=== PATIENT | female | born 1995 | race Caucasian/White ===

== ENCOUNTER 2025-09-08 07:11 | Emergency (ER) | payer BC, SELFPAY ==
[2025-09-08 07:16] VITALS: BP 128/87
--- NOTE | 2025-09-08 07:54 | ED.GENMED ---
History of Present Illness
General
Chief Complaint: Post Operative Problem(s)
Source: patient
Exam Limitations: none
Time Seen by Provider: 09/08/25 07:46
Nursing documentation reviewed up to this point in time: agreed with
History of Present Illness
History of Present Illness:
29 yr old female presents to the ER for evaluation. Patient has a history of adenomyosis and heavy vaginal bleeding which was treated with hysterectomy. Patient had a total robotic hysterectomy however has ovaries in place on 07/19 at [facility]
[place] by Dr. Greene. She presents to the ER however because of low back pain which started on Friday 2 days ago. She denies any injury but does report she has a 30 pound toddler at home and pain is worse with lifting him. It is also worse
with bending twisting. She denies any fever or chills. She does report that in the past she presented with back pain and had a UTI. She denies any actual UTI symptoms including dysuria frequency. She also has a history of right renal stone.
Phy Exam
General Physical Exam
General Presentation: no apparent distress
General age: appears stated age
General Skin: warm and dry
General Habitus: normal
General Mental: alert
General Hydration: appears well hydrated
Gastrointestinal Exam
Gastrointestinal Exam: soft and other (minimally tender left abd region )
Neurological Exam
Neurological Exam: alert and oriented x3
Musculoskeletal Exam
Musculoskeletal Exam: full ROM
Skin Exam
Skin Exam: normal color and warm/dry
Psychiatric Exam
Psychiatric Exam: normal mood/affect
Course
Orders/Labs/Results
Orders:
Orders
09/08/25 08:03
CT Abd/Pel (IV only)-DH only Urgent
Comment:
Reason For Exam: left sided abd pain/back pain
IV Insert/Care/Rem.- Treatment PRN
0.9% Sodium Chloride 1000 ml [Nss] 1,000 ml IV BOLUS
Ketorolac [Toradol] 15 mg IV NOW STA
09/08/25 08:05
diazePAM [Valium Injection] 2 mg IV NOW STA
09/08/25 08:23
Complete Blood Count/With Diff Urgent
Comprehensive Metabolic Panel Urgent
Urinalysis Reflex To Culture Urgent
Date Specimen was Collected: 09/08/25
Time Specimen was Collected: 08:21
09/08/25 09:49
US Pelvis Only (non-obstetric) Urgent
Comment:
Reason For Exam: left ovarian cyst + back pain
09/08/25 09:53
Morphine Sulfate 4 mg IV NOW STA
Abnormal Lab Results
09/08/25
08:23
Abs Immat Gran (auto) 0.1 H 10^3/uL
(0-0.05)
Absolute Neuts (auto) 6.6 H 10^3/uL
(1.4-6.5)
09/08/25 08:23
09/08/25 08:23
Vital Signs
Initial and Last Documented VS:
Initial Vital Signs
Temp Pulse Resp BP Pulse Ox
98.6 F 89 13 128/87 98
09/08/25 07:16 09/08/25 07:16 09/08/25 07:16 09/08/25 07:16 09/08/25 07:16
Last Documented Vital Signs
Temp Pulse Resp BP Pulse Ox
98.6 F 64 13 128/87 96
09/08/25 07:16 09/08/25 08:34 09/08/25 07:16 09/08/25 07:16 09/08/25 08:34
MDM/Problems Addressed
Differential Diagnosis Includes:
Not limited to UTI less likely pyelonephritis possible renal stone musculoskeletal pain
MDM/Problems Addressed:
Patient has documented a 29-year-old female status post robotic hysterectomy who presented with low back pain. She does have a history of stones in the past. She denies any fever or chills. She is afebrile well-appearing in no acute distress
normal white count unremarkable labs . neg UA. pain is worse with movement and she does lift a 30 pound toddler .it likely may be muscular however there was a complex left ovarian cyst that measures up to 3.7 cm likely hemorrhagic cyst which was
seen on CAT scan and ultrasound. Patient was given medicine here feeling improved will DC with Rosemary Nichols with close the patient follow-up PCP and AUDIOLOGIST
*Radiology
Radiology exam reviewed: radiology read reviewed
*Pulse Oximetry
SaO2: 98
Oxygen Mode of Delivery: Room air
Patient hypoxic: no
*Critical Care Note
Total Time (30-74mins, 75-104mins- exclusive of procedures): Not Applicable
ED Attending Note
-
Portions of this chart may have been created with voice recognition software.� Occasional wrong word or��sound alike� substitutions may have occurred due to the inherent limitations of voice recognition software.
Discharge Plan
Departure
Patient Disposition: Home (Routine Discharge)
Date of Disposition: 09/08/25
Time of Disposition: 11:26
Patient with high blood pressure during this ER visit?: Yes
Condition: Fair
Covid-19: Not Applicable
Discharge Problem:
Ovarian cyst, Low back pain
Instructions: Low back pain - ED (DC), Ovarian cyst - ED (DC), BLOOD PRESSURE
Prescriptions:
New
cyclobenzaprine 10 mg tablet
10 mg PO TID PRN (Reason: muscle spasm) Qty: 10 0RF
Referrals:
Daja Sunshine CRNP [Family Provider]
Activity Restrictions/Additional Instructions:
As discussed ibuprofen 600 mg every 8 hours with food alternating with Tylenol. You may take Flexeril as needed however this medication may cause drowsiness no driving or drink alcohol this medication. Please follow up with your family doctor in
the next 2 days as well as your team truck driver. Return if any worsening of symptoms.
Interventions
Interventions:
*Risk Screen - Suicide Last Done: 09/08/25 07:16
*General Assessment Last Done: 09/08/25 07:16
*Neglect/Abuse Screening Last Done: 09/08/25 07:16
*ED- Fall Risk Assessment Last Done: 09/08/25 08:35
*ED COVID-19 Vaccine History Last Done: 09/08/25 08:35
*ED Influenza Vaccine History Last Done: 09/08/25 08:35
Discharge Date and Time
Print Language: COLOMBIAN
[2025-09-08 08:14] VITALS: BMI 30.3
[2025-09-08] MEDS: NSS 1000 IV (08:23)
[2025-09-08] MEDS: TORADOL 15 MG IV (08:24)
[2025-09-08] MEDS: VALIUM INJECTION 2 MG IV (08:24)
[2025-09-08 08:45] LABS: Urine Character Clear (Clear)
[2025-09-08 08:46] LABS: Hematocrit 38.1 % (37.0-47.0); Hemoglobin 12.9 g/dL (12.0-16.0); Mean Corp Hgb Conc. 33.9 g/dL (33.0-37.0); Mean Corpuscular Volume 85.6 fL (81.0-99.0); Nucleated Red Blood Cells % 0 %; Platelet Count 284 10^3/uL (130-400); Red Cell Dist. Width 12.8 % (11.5-14.5)
[2025-09-08 08:57] LABS: ALT (SGPT) 16 U/L (0-35); AST (SGOT) 16 U/L (14-36); Albumin 4.7 g/dl (3.5-5.0); Alkaline Phosphatase 62 U/L (38-126); Blood Urea Nitrogen 17 mg/dl (7-17); Calcium 9.9 mg/dl (8.4-10.2); Carbon Dioxide 26 mmol/L (22-30); Chloride 106 mmol/L (98-107); Estimated Creatinine Clearance > 125 ml/min; Glucose 97 mg/dl (70-99); Potassium 5.1 mmol/L (3.5-5.1); Sodium 140 mmol/L (135-145); Total Protein 7.1 g/dl (6.3-8.2); eGFR > 60.00
[2025-09-08] MEDS: MORPHINE SULFATE 4 MG IV (10:04)
== END 2025-09-08 11:10 | disposition home or self-care (01) ==
LOC: EMR 07:11
PROVIDERS: Nurse Practitioner; EMERGENCY PHYSICIAN Emergency Medicine; FAMILY PHYSICIAN Nurse Practitioner Family
DX: N83.292 Other ovarian cyst, left side (principal); R03.0 Elevated blood-pressure reading, without diagnosis of hypertension; Z87.442 Personal history of urinary calculi; Z90.710 Acquired absence of both cervix and uterus
CPT/HCPCS: 99284; 96374; 96375 ×2; 96361; 74177; 76856; 80053; 81003; 85025; Q9967